=== PATIENT | female | born 2000 | race Caucasian/White ===

== ENCOUNTER 2023-01-21 19:49 | Emergency (ER) | payer BC, SELFPAY ==
[2023-01-21 20:00] VITALS: BP 148/83; PULSE 74; RESP 18; TEMP 36.8; O2SAT 99; BMI 40.4
--- NOTE | 2023-01-21 21:03 | ED.ABDPAIN ---
HPI - Abdominal Pain General Chief Complaint: Abdominal Pain Stated Complaint: Cramping pain, Vaginal bleeding Time Seen by Provider: 01/21/23 20:00 History of Present Illness HPI narrative: This 22-year-old female comes in reporting crampy abdominal pain over the past week or so. She states that the pain is sometimes it intense but then completely goes away. Is located in the mid abdomen generally. Today she wiped herself and noted some bloody discharge from her vaginal vault. She states that she finished her menses more than a week ago. She has not had dysfunctional uterine bleeding in the past. She states that there is a possibility she could be . She does not report any fevers, nausea, vomiting. She did have some constipation a couple days ago followed by 1 episode of diarrhea. Related Data Home Medications Medication Instructions Recorded Confirmed No Known Home Medications 01/21/23 01/21/23 Allergies Allergy/AdvReac Type Severity Reaction Status Date / Time No Known Drug Allergies Allergy Verified 01/21/23 20:03 Review of Systems Status of ROS Reports: 10 or more systems reviewed and unremarkable except as noted in History and below Narrative Constitutional: No fevers, no weight gain or loss. Eyes: No discharge. No vision changes. HENT: No congestion, no sore throat, no ear pain. Cardiovascular: No chest pain, no palpitations. Respiratory: No shortness of breath, no wheezes, no cough. Gastrointestinal: Crampy abdominal pain as described above. Genitourinary: No dysuria, no hematuria. Musculoskeletal: Normal range of motion. Skin: No rashes, no pruritis. Neurological: No dizziness, weakness, sensory change, speech change. Endo/Heme/Allergies: No bruising or bleeding. No polydipsia. Pysch: no suicidality, no anxiety, no insomnia. All other systems reviewed and are negative. Exam Narrative: Exam Narrative: Constitutional: Well-developed, well-nourished, no acute distress. HEENT: Normocephalic, atraumatic. Neck: Normal range of motion. Nontender. Supple. Heart: Regular. No murmurs. Normal rate. Intact distal pulses. Lungs: Clear to auscultation. No chest discomfort. No wheezes, rhonchi, or rales. Abdomen: Normal bowel sounds. Nontender. No rebound tenderness. Genitalia: Deferred. Back: No midline tenderness. Normal range of motion. Extremities: Normal range of motion. No injury. Skin: Intact. No rash. Warm. No erythema or pallor. Neurologic: No altered sensation. No weakness. Alert and oriented. Psychiatric: No suicidality. No anxiety or depression. No insomnia. Nursing notes and vitals signs are reviewed. Const: Vital Signs, click to edit/add: Vital Signs - 24 hr 01/21/23 20:00 Temperature 98.3 F Pulse Rate [Right Pulse Oximeter] 74 Respiratory Rate 18 Blood Pressure [Ri ght Upper Arm] 148/83 H Pulse Oximetry 99 Oxygen Delivery Me thod Room Air Course Vital Signs Vital signs: Initial Vital Signs Temperature 98.3 F 01/21/23 20:00 Temperature Source Temporal Artery Scan 01/21/23 20:00 Pulse Rate 74 01/21/23 20:00 Respiratory Rate 18 01/21/23 20:00 Blood Pressure 148/83 H 01/21/23 20:00 Blood Pressure Mean 104 01/21/23 20:00 Blood Pressure Position Sitting 01/21/23 20:00 Pulse Oximetry 99 01/21/23 20:00 Oxygen Delivery Method Room Air 01/21/23 20:00 Vital Signs Temperature 98.3 F 01/21/23 20:00 Pulse Rate 74 01/21/23 20:00 Respiratory Rate 18 01/21/23 20:00 Blood Pressure 148/83 H 01/21/23 20:00 Pulse Oximetry 99 01/21/23 20:00 Oxygen Delivery Method Room Air 01/21/23 20:00 Temperature 98.3 F 01/21/23 20:00 Pulse Rate 74 01/21/23 20:00 Respiratory Rate 18 01/21/23 20:00 Blood Pressure 148/83 H 01/21/23 20:00 Pulse Oximetry 99 01/21/23 20:00 Oxygen Delivery Method Room Air 01/21/23 20:00 MDM - Abdominal Pain MDM Narrative Medical decision making narrative: This patient comes in reporting crampy abdominal pain but currently is not having any symptoms at all. I did discuss lab and imaging options with the patient and in a process of shared decision making she stated she would like to have her urine checked for . This returns negative as does her urinalysis. Her abdominal crampy pains are more likely emanating from her bowels. She has had some constipation recently. I encouraged using [id number] medicines to attend to her bowel regimen. She did receive a prescription for Toradol. Lab Data Labs: Lab Results 01/21/23 Range/Units 21:07 HCG, Qual Negative (Negative) Urine Color Yellow (Yellow) Urine Appearance Clear (Clear) Urine pH 7.0 (5.0-8.5) Ur Specific [place] 1.010 (1.000-1.030) Urine Protein Negative (Negative) Urine Glucose (UA) Negative (Negative) Urine Ketones Negative (Negative) Urine Blood 2+ A (Negative) Urine Nitrite Negative (Negative) Urine Bilirubin Negative (Negative) Urine Urobilinogen 0.2 (0.2-1.0) Ur Leukocyte Esterase Trace A (Negative) Urine RBC 2-5 A (0-2) Urine WBC 0-2 (0-5) Ur Squamous Epith Cells Few (None-Few) Amorphous Sediment Few A (None) Urine Bacteria Few A (None) Discharge Plan Discharge Clinical Impression: Abdominal pain Patient Disposition: Home, Self-Care Condition: Stable Additional Instructions: Use medication as needed and indicated. Use [id number] meds as needed and directed for treating symptoms of constipation. Follow up with MD or return if worsening. Prescriptions: No Action No Known Home Medications Follow Up/Referrals: Provider,Not a Local [Primary Care Provider] - Stand Alone Forms: [facility] Info Instructions
[2023-01-21 21:21] LABS: Appearance Urine Clear (Clear); Bilirubin Urine Negative (Negative); Blood Urine 2+ (Negative); Color Urine Yellow (Yellow); Glucose Urine Negative (Negative); Ketones Urine Negative (Negative); Leukocyte Esterase Urine Trace (Negative); Nitrite Urine Negative (Negative); Protein Urine Negative (Negative); Urobilinogen Urine 0.2 (0.2-1.0)
[2023-01-21 21:27] LABS: HCG Qualitative* Negative (Negative)
[2023-01-21 21:45] LABS: Amorphous Sediment Urine Few; Bacteria Urine Few; Squamous Epithelial Cell Urine Few (None-Few); WBC Urine 0-2 (0-5)
== END 2023-01-21 22:16 | disposition home or self-care (01) ==
PROVIDERS: Emergency Provider Emergency Medicine Emergency Medical Services
DX: R10.9 Unspecified abdominal pain (principal)
CPT/HCPCS: 81001; 84703; 87086; 99283; 99284